=== PATIENT | male | born 1945 | race Caucasian/White ===

== ENCOUNTER 2017-02-11 14:30 | Outpatient (CLI) | payer OTHER ==
--- NOTE | 2017-02-11 15:45 | Ultrasound Report ---
AORTA SCREEN: 02/11/2017 CLINICAL INDICATION: Screening, smoking history. TECHNIQUE: Real-time scanning was performed with automotive sales representative static images obtained. FINDINGS: The proximal abdominal aorta is suboptimally visualized, due to bowel gas, but no aneurysm al dilatation is identified. The mid and distal portions are normal in caliber, measuring 1.4 and 1. 8 cm. The iliacs are normal in caliber. IMPRESSION: NO EVIDENCE OF ABDOMINAL AORTIC ANEURYSM. JOB #: [id number] EXT JOB #:[id number]
== END 2017-02-11 14:31 | disposition home or self-care (01) ==
LOC: DI 14:30
PROVIDERS: ATTEND Family Medicine
DX: Z13.6 Encounter for screening for cardiovascular disorders (principal)
CPT/HCPCS: 76706

== ENCOUNTER 2019-08-18 12:12 | Outpatient (CLI) | payer OTHER ==
[2019-08-18] MEDS ORDERED: IOVERSOL 320 100 ML VIAL IVP ONE ×2 (12:32→13:35)
[2019-08-18 12:44] LABS: ALBUMIN 4.2 g/dL (3.2-5.5); ALBUMIN/GLOBULIN RATIO 1.2 (1.0-2.2); CALCIUM 9.6 mg/dL (8.5-10.3); CREATININE 0.7 mg/dL (0.6-1.2); TOTAL PROTEIN 7.8 g/dL (6.7-8.2)
--- NOTE | 2019-08-18 13:55 | CT Report ---
Reason: CA OF THE TONGUE Procedure Date: 08/18/2019 Accession Number: [id number] / [id number] Procedure: CT - HEAD W CPT Code: Final Report FULL RESULT: EXAM: CT HEAD WITH CONTRAST EXAM DATE: 08/18/2019 01:24 PM. CLINICAL HISTORY: 74-year-old male. CA OF THE TONGUE. COMPARISON: NECK SOFT TISSUE W/ 08/18/2019 1:16 PM. TECHNIQUE: Multiaxial CT images were obtained from the foramen magnum to the vertex with intravenous contrast. Reformats: Sagittal and coronal. IV contrast: 80 mL Optiray 320. In accordance with CT protocol optimization, one or more of the following dose reduction techniques were utilized for this exam: automated exposure control, adjustment of mA and/or KV based on patient size, or use of iterative reconstructive technique. FINDINGS: Parenchyma: No intraparenchymal hemorrhage. No evidence of mass, midline shift, or CT findings of infarction. Zarate-white differentiation is distinct. No abnormal intracranial enhancement. Extraaxial Spaces: Normal for age. No subdural or epidural collections identified. Ventricles: Normal in size and position. Sinuses and Orbits: Imaged paranasal sinuses, orbits, and mastoids show no significant abnormality. Bones: No evidence of fracture or calvarial defect. Other: Atherosclerosis of the intracranial arteries. IMPRESSION: No abnormal intracranial enhancement to suggest evidence for intracranial metastatic disease. [facility]
--- NOTE | 2019-08-18 14:02 | CT Report ---
Reason: CA OF THE TONGUE Procedure Date: 08/18/2019 Accession Number: [id number] / [id number] Procedure: CT - SOFT TISSUE NECK W CPT Code: Final Report FULL RESULT: EXAM: CT SOFT TISSUE NECK WITH CONTRAST. EXAM DATE: 08/18/2019 01:24 PM. HISTORY: 74-year-old male. CA OF THE TONGUE. COMPARISONS: None. TECHNIQUE: Routine soft tissue neck CT protocol with contrast. Reconstructions: Coronal and sagittal. IV contrast: OPTIRAY 320. In accordance with CT protocol optimization, one or more of the following dose reduction techniques were utilized for this exam: automated exposure control, adjustment of mA and/or KV based on patient size, or use of iterative reconstructive technique. FINDINGS: Visualized Intracranial Contents: Unremarkable. Orbits: Status post bilateral lens replacement surgery. The visualized orbits are otherwise unremarkable. Sinuses: Visualized paranasal sinuses and mastoid air cells are clear. Oral cavity: There is an enhancing mass involving the right anterolateral thigh on and adjacent floor of mouth measuring approximately 23 x 13 x 25 mm (transverse by craniocaudal) (series 2 image 23, series 4 image 7), which is nonspecific but compatible with the suggested diagnosis of cancer of the tongue. Pharynx: Pharyngeal mucosa is unremarkable. The infratemporal fossa, parapharyngeal spaces, and retropharyngeal space are unremarkable. The base of the tongue is symmetric and unremarkable. The airway is patent. Larynx: Larynx and supraglottic airway are patent without mass lesion. Vocal cords are symmetric. The visualized trachea is unremarkable. Parotid and Submandibular Glands: Symmetric and unremarkable. Lymph Nodes: No enlarged lymph nodes are identified in the cervical, supraclavicular, and visualized superior mediastinal regions. Soft tissues: Soft tissues are unremarkable. No mass lesion or abnormal enhancement. Vascular Structures: Moderate atherosclerosis involving the aortic arch and carotid bifurcations bilaterally. Thyroid Gland: Normal. Lung: The visualized lung apices demonstrate mild centrilobular emphysema.. Bones: No evidence of acute fracture or malalignment. There are moderate multilevel degenerative changes. Other: None. IMPRESSION: 1. There is an enhancing mass involving the right anterolateral thigh on and adjacent floor of mouth measuring approximately 23 x 13 x 25 mm (transverse by craniocaudal) (series 2 image 23, series 4 image 7), which is nonspecific but compatible with the suggested diagnosis of cancer of the tongue. 2. No evidence of cervical adenopathy or enhancing mass lesions elsewhere. 3. Mild centrilobular emphysema. 4. Moderate atherosclerosis involving the aortic arch and carotid bifurcations bilaterally. RADIA
--- NOTE | 2019-08-18 15:58 | CT Report ---
Reason: CA OF THE TONGUE Procedure Date: 08/18/2019 Accession Number: [id number] / [id number] Procedure: CT - CHEST W CPT Code: Final Report FULL RESULT: EXAM: CT CHEST EXAM DATE: 08/18/2019 01:24 PM. CLINICAL HISTORY: CA OF THE TONGUE. COMPARISONS: None. TECHNIQUE: Routine helical CT imaging was performed through the chest. IV contrast: 80 mL Optiray 320. Reconstructions: Coronal and sagittal. In accordance with CT protocol optimization, one or more of the following dose reduction techniques were utilized for this exam: automated exposure control, adjustment of mA and/or KV based on patient size, or use of iterative reconstructive technique. FINDINGS: Lungs/Pleura: Bilateral lower lobe blebs. Mild to moderate centrilobular emphysema. There are several left lower lobe lung nodules on series 3. These include a 8 x 7 mm peripheral lateral left lower lobe nodule on image 66; a tiny 2 mm nodule in lateral left lower lobe on image 56; and 3 mm posterior subpleural nodule on image 65. 4 mm perifissural nodule along the minor fissure on series 11 image 88. Mediastinum: Moderate to extensive coronary arterial calcifications. No cardiomegaly or pericardial effusion. No bulky mediastinal adenopathy. Bones: Multiple old, healed right rib fractures. No acute fracture. Thoracolumbar scoliosis. Degenerative changes within the visualized spine. Visualized Abdomen: Atrophic pancreas with numerous scattered calcifications consistent with chronic calcific pancreatitis. Bilateral adrenal gland thickening compatible with hypertrophy. Fatty liver with diffuse decreased attenuation. Medial splenule. Other: None. IMPRESSION: 1. Emphysema. 2. Subcentimeter lung nodules and perifissural nodules. Consider 3-6 month follow-up chest CT. 3. Chronic calcific pancreatitis. Kiet Meredith et al. Guidelines for Management of Incidental Pulmonary Nodules Detected on CT Images: From the Fleischner Society 2017. Radiology (2017). RADIA
== END 2019-08-18 12:13 | disposition home or self-care (01) ==
LOC: LAB 12:12 → DI 12:13
PROVIDERS: ATTEND Family Medicine
DX: C01 Malignant neoplasm of base of tongue (principal); J43.2 Centrilobular emphysema; I70.0 Atherosclerosis of aorta; I65.23 Occlusion and stenosis of bilateral carotid arteries; R91.8 Other nonspecific abnormal finding of lung field; K86.1 Other chronic pancreatitis
CPT/HCPCS: 36415; 70460; 70491; 71260; 80053; Q9967

== ENCOUNTER 2019-10-14 12:47 | Outpatient (CLI) | payer MEDICARE ==
--- NOTE | 2019-10-14 18:15 | CONSULTATION NOTE ---
Palliative Care Consultation - Referral Referring Provider: Dr. Bear Galvan Time of Visit: [id number] [place] [facility] [place] Reason: Tongue CA/Anxiety/Pain of neoplastic origin - Information Sources Records reviewed: Previous records reviewed History/Review of Systems obtained from: Patient Exam limitations: No limitations - History of Present Illness Brief History of Present Illness: This is a 74-year-old gentleman who was found to have a right mass, and a routine dental visit. He has had all his teeth removed on his upper gums, for dentures though he does not wear these. He does have a increasing mass in the right base of his tongue, and neck imaging on 08/17 showed a 2 x 2.5 cm right tongue mass which showed extension into the the floor of the mouth. Patient has developed since then a 2 to 3 cm node just under the mandible or, firm but nontender. He is been having increasing dysphagia, though denies choking and increasing pain. He has lost over 15 pounds in the last several months. He has had a series of unfortunate events in trying to get to an oral surgeon, he finally has an appointment tomorrow. He did see otolaryngology with a telemedicine on 10/08. He does have a pending PET scan, as well as a CT scan. Patient is meeting with palliative care, he does present with poor social support, longstanding tobacco and alcohol abuse, worsening pain, and increasing anxiety over pending treatment plans. There has been a fairly extensive delay, and patient presents is quite frustrated. Medical/Surgical History - Past Medical History Cardiovascular: reports: Hypertension Respiratory: reports: COPD Neuro: reports: Peripheral neuropathy (right from neck injury; left from ankle injury) GI: reports: Chronic constipation Psych: reports: Anxiety MRSA Hx?: No - Past Surgical History General: reports: Other (hernia repair) HEENT: reports: Other (removal of upper teeth) - Substance History Use: Uses substance without health or social issues: Tobacco (1.5 packs a day; has tried to cut down to 1 pack daily), Alcohol (1-2 liters of wine a day) Social History - Living Situation Living arrangement: At home Living Situation: Alone Support System: Patient lives alone, [place] but his has health issues. He has his "routine" unfortunately this is been broken up with COVID-19, was going to the gym 4-5 times a week, has little social support, is . He is estranged from his 2 children, for 10 to 12 years. He does not believe they are aware of his current situation. He does see his brother is supportive, but given the likelihood of fairly aggressive treatment, will need to explore resources. Family History - Family History Family History: Mother: , CVA/TIA, Father: , Cancer (prostate cancer), Brother: Alive and Well (prostate cancer) Medications/Allergies - Medications Home Medications: Ambulatory Orders Medication Instructions Recorded Confirmed Acetaminophen 1,000 mg PO TID PRN 10/14/19 10/14/19 Ascorbic Acid [Vitamin C] 500 mg PO DAILY 10/14/19 10/14/19 Aspirin 81 mg PO DAILY 10/14/19 10/14/19 Cholecalciferol (Vitamin D3) 5,000 units PO DAILY 10/14/19 10/14/19 [Vitamin D3] Magic Mouthwash 5 - 10 ml PO Q4HR PRN 10/14/19 Multivit-Min/FA/Lycopen/Lutein 1 tab PO DAILY 10/14/19 10/14/19 [Centrum Silver Men Tablet] Vitamin B Complex/Folic Acid 1 tab PO DAILY 10/14/19 10/14/19 [Balance B-50 Tablet] atenoloL [Atenolol] 25 mg PO DAILY 10/14/19 10/14/19 - Allergies Allergies/Adverse Reactions: Allergies Allergy/AdvReac Type Severity Reaction Status Date / Time cefuroxime Allergy Rash Verified 10/14/19 18:15 Penicillins Allergy Unknown Verified 10/14/19 18:15 Review of Systems - Constitutional Constitutional: reports: Fatigue (wo), Weight loss (baseline weight 160; today weighs 143) - Eyes Eyes: reports: Vision loss - Ears, Nose & Throat Ears, Nose & Throat: reports: Ear pain (mild right ear; sharp shooting up from jaw; intermittent in nature), Dental decay (poor dentition with lower teeth. area swelling right base of mouth; no bleeding on exam), Other (palpable neck node). denies: Nosebleeds - Cardiovascular Cardiovascular: reports: Decr. exercise tolerance (very frustrated at decline; had been working out; not able to go to gym because of COVID19). denies: Chest pain - Respiratory Respiratory: reports: SOB with exertion. denies: Cough, Wheezing, SOB at rest - Gastrointestinal Gastrointestinal: reports: Constipation (new symptom for patient; hard stool has not been taking anything), Other (eats once a day; only using one ensure;) - Musculoskeletal Musculoskeletal: reports: Stiffness, Muscle weakness, Other (right neck pain/discomfort unclear if tumor or related to old injury "pinched nerve") - Integumentary Integumentary: reports: Dryness - Neurological Neurological: reports: General weakness, Slurred speech (mechanical having more difficulty talking) - Psychiatric Psychiatric: reports: Depression, Anxiety - All Other Systems All Other Systems: reports: Reviewed and negative Physical Exam - Vital Signs Temperature: 36.8 C Pulse Rate: 52 Respiratory Rate: 18 Blood Pressure: 130/81 - Physical Exam General Appearance: positive: Alert, Mild distress, Anxious Eyes Bilateral: positive: Normal inspection ENT: positive: No signs of dehydration, Other (poor dentition; black coating on tongue attributes to wine staining) Neck: positive: Trachea midline, Lymphadenopathy (R) Cardiovascular: positive: Regular rate & rhythm, Bradycardia Respiratory: positive: No respiratory distress, Diminished throughout. negative: Wheezes, Rales, Rhonchi Abdomen: positive: Non-tender, Soft Skin: positive: Pallor, Dryness Extremities: positive: No pedal edema Neurologic/Psychiatric: positive: Oriented x3, Mood/affect nml, Flat affect Palliative Care - POLST Patient has POLST: No Pain: Pain worsening, Location (right cervical area; right base of tongue; right neck radiating up into ear), Severity (2-9/10) Tiredness/Fatigue: None Drowsiness/Sedation: None Nausea: None Anorexia: None Dyspnea: None Depression: None Anxiety: Mild (1-3) Feelings of wellbeing/Perceived Quality of Life: Good, Acceptable Constipation: Yes, Intermittent constipation Performance Status: Patient is impacted by his neuropathy, needs a assisted cane for balance. He is able to manage his own ADLs and currently management of his IADLs. He does tire more easily with activity. - Palliative Care Discussion: Patient is just at the beginning of his cancer journey, trying to get to a place where he has decisions and options. He is still needs his staging information, he meets with the surgeon tomorrow at [facility]. We talked about his cancer he has usually takes or needs an aggressive approach, he will need some assistance after surgery or in support of treatment. We talked about cancer treatments, including surgery, chemotherapy, radiation, and immunotherapy in a broadened way. Patient does feel like most everybody talks over his head. So we are trying to break this down some. We did discuss in the context of a weighing decisions as far as quality of life versus quantity of life, what is curative in nature and what is palliative in nature as far as treatment options. He does have a treatable disease, and certainly the hope would be to extend both his quality and quantity of life but it may be a tough road up to this point in time. Patient with very little support other than his brother, he is going to need actually more likely physical support for meeting his care needs. He is already had weight loss, we did discuss the context of tube feedings as a supportive measure and not uncommon in his situation. He does present with some anxiety and fearfulness which would be appropriate. He wants to weigh his decisions in the context of how likely this would be of benefit at his age of 74, and if he were to return back to his previous level of functioning or be to be independent. Impression and Recommendations - Palliative Care Impression: This is a 74-year-old gentleman who is just starting his journey with his tongue cancer, plan in place for staging, and will be looking at treatment options. Palliative care to provide support and anticipatory guidance for pain and symptom management and coordination of care. Recommendations/Counseling Done: 1. Pain of neoplastic origin. Patient is complaining of increased pain persistent in his floor of his mouth, is somewhat adverse to medications. Recommended Magic mouthwash, this is not covered by insurance, I did speak with right aid, they can do a mix of 1:1 of lidocaine/maalox, Will not add Benadryl at this point in time given patient's risk for falls with neuropathy and high alcohol intake. Patient has been instructed to swish and spit, patient does not have any throat pain.Patient also identifies area in neck discomfort and pressure, patient has not used any medication. Recommended acetaminophen 1000 mg 3 times daily to start, I did offer hydrocodone 5 mg/acetaminophen 325 for breakthrough pain or severe pain, he will contact me if he changes his mind. 2. Neck pain. Patient attributes this to hold injury, though certainly could be referred pain from his tumor burden. Patient requesting recommendation for topical, would recommend Biofreeze, this was written down for him and instructed 2-3 times a day. 3. Weight loss. Patient with poor eating habits, eats only once a day, snacks and taking 1 Ensure a day instructed to increase nutritional supplements/shakes up to 3 times a day. Goal is for no further weight loss. At this point time he is not having choking, but is having difficulty with taste changes and physically getting adequate calories in. 4. Generalized weakness. This most likely is attributed weight loss, and also more sedentary lifestyle. Patient encouraged to continue to walk, and pace activities, he had been working out the gym previously recommended continue an ambulatory program. 5. Tobacco abuse. Patient had been smoking 1 and half packs, he has decreased to 1 pack daily. Patient does feel he could quit smoking, has in the past. Did send prescription for NicoDerm patches, though warned that this may not be covered by his insurance. 6. Alcohol abuse. Patient has fairly high retirement use of alcohol, drinking 1 to 2 L a day. When asked if he was able to get this up, he is not so sure that he would be able to. We did discuss in the context of pending possible surgery, would recommend at least temporarily cutting back, and to be honest and upfront with his providers given the risk of withdrawal syndrome. 7. Advanced care planning. Patient has very little social support, will involve medical palliative care social media marketing analyst, when plan in place. Will at least do an initial referral for introduction and resource management. Patient reports he does have D POA with his brother already completed, requested to have copy for records here at hospital. Will explore other advanced care planning documents Time Spent: 75 minutes with greater than 50% done with counseling, anticipatory guidance, review of cancer and cancer treatment staging, Looking at pain in symptom management, and coordination of care. Plan is to meet in 2 weeks after plan is in place.
== END 2019-10-14 12:48 | disposition home or self-care (01) ==
LOC: PC 12:47
PROVIDERS: ATTEND Nurse Practitioner Adult Health
DX: Z51.5 Encounter for palliative care (principal); G89.3 Neoplasm related pain (acute) (chronic); R13.10 Dysphagia, unspecified; R47.81 Slurred speech; R53.1 Weakness; R63.4 Abnormal weight loss; C02.9 Malignant neoplasm of tongue, unspecified; M54.2 Cervicalgia; K59.00 Constipation, unspecified; F17.210 Nicotine dependence, cigarettes, uncomplicated; F41.9 Anxiety disorder, unspecified; R06.02 Shortness of breath; K02.9 Dental caries, unspecified; Z79.899 Other long term (current) drug therapy; Z60.8 Other problems related to social environment; Z72.89 Other problems related to lifestyle
CPT/HCPCS: 99205

== ENCOUNTER 2019-10-27 14:32 | Outpatient (CLI) | payer MEDICARE ==
--- NOTE | 2019-10-27 17:04 | CONSULTATION NOTE ---
Palliative Care Follow Up - Referral Referring Provider: Dr. 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 He has not had his PET scan, for which she has canceled. He had met with Dr. Cavazos after his series of unfortunate events as far as delay, and it did look like he was moving forward with surgery. Per his note, they had reviewed the standard of care management of reconstruction with a microvascular free flap, including most likely needing to remove his teeth, follow-up with adjuvant radiation. He also talked about perioperative tracheostomy, as well as needed for nasogastric goal tube feeding/gastrostomy tube. His understanding was it would be a fairly long and involved process, it would be recovery of up to 6 months, and that it would impact his speaking point. In discussing what was the barriers for excepting, as he had ended up canceling both the surgery and the PET scan. He reports it had to do with the discussion regarding length of operation/prolonged recovery time to get to normal, the severity and aggressiveness of all the interventions, and also his concern regarding withdrawals. He reports he did not have enough time to taper down on his wine, and was told he would have seizures if he did not withdraw appropriately. Did revisit this, in the context of the choice of not making the choice to have treatment, he would be choosing for the tumor to continue to progress. This does mean that it has a chance of impacting swallowing, increasing pain, risk for bleeding, and adding to his demise. We did discuss in the context of not having staging, the prognosis and changes along with this would be less predictable, but most likely would have progressive disease including metastatic spread. His brother was present for the discussion, patient after much discussion, continues to feel this would not be congruent with his definition of quality of life. He would be willing however to talk to oncology to see if there was any other palliative treatment, that he might be willing to partake in for both quality and quantity of life. Counseling was provided if chooses no further treatment, would be appropriate for hospice care, with the goal to focus on comfort measures. Patient had multiple questions regarding end-of-life choices, including DWD, when he should transition to assisted or alternative living situation, what kind of rate of progression we would expect, as well as complications.Patient is willing to both did speak with oncology, as well as to have further testing if could be done locally. Patient's past medical history includes hypertension, COPD, peripheral neuropathy on the right from a neck injury, on the left from an ankle injury, chronic constipation, anxiety, and alcoholism. Social History - Living Situation Living arrangement: At home Living Situation: Alone Support System: Patient does live on his own, he does own his condo. He is wondering about repairing for end-of-life, including selling his condo and moving into assisted living. He has not explored this fully, is willing to speak with the palliative care social worker masters. His brother Dario who is his D POA, would like to be part of this conversation. Patient's brother Dario also has a history of prostate/bladder cancer, and wants to be supportive of patient. Though he himself appears quite frail and most likely not able to do any hands-on car egiving. He is estranged from his children at this time. Medications/Allergies - Medications Home Medications: Ambulatory Orders Medication Instructions Recorded Confirmed Acetaminophen 1,000 mg PO TID PRN 10/14/19 10/14/19 Ascorbic Acid [Vitamin C] 500 mg PO DAILY 10/14/19 10/14/19 Aspirin 81 mg PO DAILY 10/14/19 10/14/19 Cholecalciferol (Vitamin D3) 5,000 units PO DAILY 10/14/19 10/14/19 [Vitamin D3] Magic Mouthwash 5 - 10 ml PO Q4HR PRN 10/14/19 Multivit-Min/FA/Lycopen/Lutein 1 tab PO DAILY 10/14/19 10/14/19 [Centrum Silver Men Tablet] Vitamin B Complex/Folic Acid 1 tab PO DAILY 10/14/19 10/14/19 [Balance B-50 Tablet] atenoloL [Atenolol] 25 mg PO DAILY 10/14/19 10/14/19 - Allergies Allergies/Adverse Reactions: Allergies Allergy/AdvReac Type Severity Reaction Status Date / Time cefuroxime Allergy Rash Verified 10/14/19 18:15 Penicillins Allergy Unknown Verified 10/14/19 18:15 Review of Systems - Constitutional Constitutional: reports: Fatigue, Weight loss (144.7) - Ears, Nose & Throat Ears, Nose & Throat: reports: Hearing loss, Other (some bleeding at times; not persistent) - Cardiovascular Cardiovascular: reports: Decr. exercise tolerance. denies: Chest pain - Respiratory Respiratory: reports: SOB with exertion. denies: SOB at rest - Gastrointestinal Gastrointestinal: reports: Constipation (remains persistent; using miralax 1/2 capful every other day, did not titrate it up; on episode of severe constipation only last week), Early satiety, Other (more difficulty with textures/mouth pain). denies: Nausea - Genitourinary Genitourinary: reports: Frequency - Musculoskeletal Musculoskeletal: reports: Stiffness, Muscle weakness, Assistive devices (uses cane for balance issues) - Integumentary Integumentary: reports: Dryness - Neurological Neurological: reports: General weakness, Slurred speech (mechanical) - Psychiatric Psychiatric: reports: Depression, Anxiety. denies: Suicidal - Endocrine Endocrine: reports: Intolerance to cold (worsening;) - Hematologic/Lymphatic Hematologic/Lymphatic: denies: Recurrent infections - All Other Systems All Other Systems: reports: Reviewed and negative Physical Exam - Vital Signs Pulse Rate: 52 Respiratory Rate: 18 Blood Pressure: 135/73 - Physical Exam General Appearance: positive: No acute distress, Alert Eyes Bilateral: positive: Normal inspection ENT: positive: Other (no enlarged area at floor of mouth; poor dentition) Neck: positive: Other (nodule under right mandible enlarged compared to last exam; fixed and area of pain with palpation) Cardiovascular: positive: Bradycardia Respiratory: positive: No respiratory distress, Breath sounds nml, Diminished in bases Abdomen: positive: Non-tender, Soft Skin: positive: Pallor, Dryness Extremities: positive: No pedal edema Neurologic/Psychiatric: positive: Oriented x3, Mood/affect nml, Flat affect Palliative Care - POLST Patient has POLST: Yes Pain: Pain worsening, Location (Reports pain is mostly in howard area, radiating up into ear, reports some pain in his left ear as well. Has been using acetam inophen 1 time a day, needed it 3 times yesterday. He is using the Magic mouthwash at least daily, with some improvement in pain. Aggravating fluids is the wine, more textured foods.) Tiredness/Fatigue: Moderate (4-6) Drowsiness/Sedation: None Nausea: None Anorexia: Moderate (4-6), Weight loss (steady from last visit; 15 pounds overall with dx) Dyspnea: Mild (1-3) Depression: Mild (1-3) Anxiety: Mild (1-3) Feelings of wellbeing/Perceived Quality of Life: Fair, Acceptable, Worsening Sleep: Sleeps well Constipation: Yes, Unmanaged, Intermittent constipation Performance Status: Patient used to have a routine, that he like to do for working out. Asking if he can do some easygoing exercises, as gym is not open. Asked him to just pay attention, and pace self, recommended progressive ambulation, but some strength building is fine. Patient is still able to manage his ADLs, is asking appropriate questions about the future. - Palliative Care Discussion: Patient does understand the seriousness of his illness, in the context of decision making, he had many barriers to treatment for curative intent. He is willing though to explore other options, including immunotherapy if candidate through oncology. He very much wants to keep his care localized, this includes a lot of resistance to consideration of radiation as part of the picture as well. We did discuss they would need to complete staging, he would like to speak with the oncologist first before he moves forward with a PET scan. He would be willing to do other scans or testing here at the [facility] facility. Patient is thinking about the future, he does have his D POA, it is his brother Horacio [phone]. He does have application in for the wheeled body program from the [facility], and does understand he needs a "Plan B". Did give him the information for [facility]. Counseling provided regarding the continuum of care including palliative treatment, hospice care, as well as end-of-life choices. Patient reports he has a POLST, filled out with Dr. Galvan, does not have a copy of this. He is to bring this in next visit, to make sure it is reflective of his current goals. I did get the D POA and the directives for medical records. Impression and Recommendations - Palliative Care Impression: This is a 74-year-old gentleman who has a diagnosis of squamous cell carcinoma of the right floor of the mouth, known T3, N1, M0. Original plan for him to move forward with surgery, though he is now canceled both surgery and PET scan. Patient is willing to speak with oncology, about palliative treatments if options to extend both quality and quantity of life. Patient has complex social situation, as well as longstanding tobacco and alcohol abuse. Palliative care to continue provide support for symptom management and anticipatory guidance. Recommendations/Counseling Done: 1. Pain of neoplastic origin. Patient has gotten relief with Magic mouthwash, it is a mix of one-to-one lidocaine/Maalox, as does not need the Benadryl at this point in time. He is using it prior to eating, did encourage and use it more frequently to improve his intake. Patient has increased his acetaminophen intake, reports he is taking it 1-3 times daily, I did offer him stronger pain medication, he is declined at this point in time. 2. Weight loss. Patient continues with poor eating habits, eats only once a day, takes a nutritional shake about once daily. He has not had any further weight loss, is having more trouble with his tongue pain and swallowing, recommended to get a "bullet" to be able to pure and grind food. We will have him see dietitian in addition to oncology when referral completed. Encouraged to do more small frequent feedings, as well as increased fluid intake. Patient is still able to do his own meal prep, will continue to monitor. 3. Squamous cell cancer of the floor of the right mouth. Patient at this point in time has declined surgical intervention, counseling provided regarding curative intent versus palliative intent. Reviewed if choosing no treatment, expected worsening and sequela of untreated tumor particularly in mouth. Patient is willing to speak with oncology, to see if there are any palliative treatments that might improve his quality and quantity of life, he was interested in immunotherapy if option and worried about continuing to be independent and with min. impact of QOL. I did have surgeons note, was able to review again the information shared, patient did appear to hear appropriately along with possible complications. Patient at this point does not want surgery. 4. Alcohol abuse. Patient is trying to decrease his drinking, and also as to his discomfort in his mouth. He reports he is down to less than 1 L a day, but continues to drink. This is been long-term for him. At this point he does not see any benefit to cutting back or quitting, I did encourage him to continue with his taper as much as he could. 5. Tobacco abuse. Patient continues to smoke, at this point in time has not pursued any tobacco products i.e. NicoDerm. 6. Advanced care planning. Patient has made some end-of-life plans, does have his body donation set up, given [facility] Plan B, and cremation. He is actively thinking about transitioning his care setting, will have Yessica the social worker masters follow-up at this point now that we know the plan. Reached out to both PCP for referral through [place] and patient navigator, they do have an appointment on 11/10 they are hopefully holding for him. We will follow-up on POLST with next visit, and continue provide ongoing support every two weeks. Time Spent: 60 minutes with greater than 50% of this done in counseling regarding goals of care, anticipatory guidance particularly in the context of making sure he understands treatment versus supportive care and sequela of nontreated tumor, will follow up on oncology referral and update to PCP
== END 2019-10-27 14:33 | disposition home or self-care (01) ==
LOC: PC 14:32
PROVIDERS: ATTEND Nurse Practitioner Adult Health
DX: Z51.5 Encounter for palliative care (principal); G89.3 Neoplasm related pain (acute) (chronic); R63.4 Abnormal weight loss; K59.00 Constipation, unspecified; R13.10 Dysphagia, unspecified; F10.10 Alcohol abuse, uncomplicated; F17.210 Nicotine dependence, cigarettes, uncomplicated; J44.9 Chronic obstructive pulmonary disease, unspecified; I10 Essential (primary) hypertension; C04.9 Malignant neoplasm of floor of mouth, unspecified; C01 Malignant neoplasm of base of tongue; Z79.899 Other long term (current) drug therapy
CPT/HCPCS: 99215

== ENCOUNTER 2019-11-16 14:25 | Outpatient (CLI) | payer MEDICARE ==
--- NOTE | 2019-11-16 17:56 | CONSULTATION NOTE ---
Palliative Care Follow Up - Referral Referring Provider: Dr. 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 He had met with Dr. Richards, head and neck surgeon, and at this point in time has decided does not want to pursue surgery. There were many barriers that led up to this. Patient though was willing to meet with Dr. Herrera, oncology to see his options. He did have a consult on 11/11/2019. Patient remains overwhelmed in the context of making a decision, and we reviewed the recommendations and conversation that was documented between him and the oncologist. We did discuss if he were still a surgical care candidate, that would be curative treatment, radiation may have something to offer but he is not keen on this either. So did focus on chemotherapy for management of acute and upfront disease, as well as immun otherapy for palliation. Patient does get overwhelmed with all the symptoms regarding treatments, but we did review in the context of this all the symptoms of progressive disease. Patient is having increased trouble with swallowing, increased pain and discomfort, intermittent small amounts of bleeding, and would be expected to progress in the context of tumor growth as well. Patient has met with palliative care home health care social worker, he is planning for the future. He is selling his condo, and has explored assisted living, at this point in time he is leaning toward [facility]. Palliative care meeting with patient today, to further explain and provide anticipatory guidance, as well as further explanation regarding options provided. Social History - Living Situation Living arrangement: At home Living Situation: Alone Support System: Patient has been a long-term drinker, is able to function, and does not perceive it is problematic. Though he does admit to having decreased to less than half a liter a day. He continues to smoke. He will need to find a setting for which he can transition to. He is estranged from his children, his brother has health issues as well as brother's . He was unable to come to the appointment today. Patient has been retired for long period of time, is still managing all his own affairs. Medications/Allergies - Medications Home Medications: Ambulatory Orders Medication Instructions Recorded Confirmed Acetaminophen 1,000 mg PO TID PRN 10/14/19 11/12/19 Ascorbic Acid [Vitamin C] 500 mg PO DAILY 10/14/19 11/12/19 Aspirin 81 mg PO DAILY 10/14/19 11/12/19 Cholecalciferol (Vitamin D3) 5,000 units PO DAILY 10/14/19 11/12/19 [Vitamin D3] Magic Mouthwash 5 - 10 ml PO Q4HR PRN 10/14/19 11/12/19 Multivit-Min/FA/Lycopen/Lutein 1 tab PO DAILY 10/14/19 11/12/19 [Centrum Silver Men Tablet] Vitamin B Complex/Folic Acid 1 tab PO DAILY 10/14/19 11/12/19 [Balance B-50 Tablet] atenoloL [Atenolol] 25 mg PO DAILY 10/14/19 11/12/19 - Allergies Allergies/Adverse Reactions: Allergies Allergy/AdvReac Type Severity Reaction Status Date / Time cefuroxime Allergy Rash Verified 11/12/19 10:11 Penicillins Allergy Unknown Verified 11/12/19 10:11 Sulfa (Sulfonamide Allergy Unknown Verified 11/12/19 10:17 Antibiotics) Review of Systems - Constitutional Constitutional: reports: Fatigue, Weight stable (stable from last visit;). denies: Fever, Chills - Ears, Nose & Throat Ears, Nose & Throat: reports: Hearing loss, Dental decay, Other (noticing some bleeding and increased pain) - Cardiovascular Cardiovascular: reports: Decr. exercise tolerance - Respiratory Respiratory: denies: SOB at rest - Gastrointestinal Gastrointestinal: reports: Constipation (continues to struggle), Early satiety. denies: Nausea - Musculoskeletal Musculoskeletal: reports: Muscle weakness, Assistive devices (walking stick) - Integumentary Integumentary: reports: Dryness, Other (Patient reports a case of shingles on his buttocks, has had intermittently over time, he had gotten better as he had gotten shingles vaccine, along with the booster. He was surprised he still had outbreak. Patient may need prophalaxis if goes on treatment) - Neurological Neurological: reports: Slurred speech (mechanical) - Psychiatric Psychiatric: reports: Depression (tearful through visit today) - Hematologic/Lymphatic Hematologic/Lymphatic: denies: Recurrent infections - All Other Systems All Other Systems: reports: Reviewed and negative Physical Exam - Vital Signs Temperature: 36.8 C Pulse Rate: 47 Respiratory Rate: 18 Blood Pressure: 152/72 - Physical Exam General Appearance: positive: Alert, Anxious Eyes Bilateral: positive: Normal inspection ENT: positive: Other (poor dentition with missing teeth bottom; edentulous top; unable to move tongue back in mouth related to pain/swelling;) Neck: positive: Trachea midline, Lymphadenopathy (R), Lymphadenopathy (L) Cardiovascular: positive: Bradycardia Respiratory: positive: Diminished throughout. negative: Wheezes Abdomen: positive: Non-tender, Soft Skin: positive: Pallor, Dryness Extremities: positive: No pedal edema Neurologic/Psychiatric: positive: Oriented x3, Weakness, Depressed mood/affect Palliative Care - POLST Patient has POLST: Yes POLST Status: DNR, Selective Treatment (completed at visit) Pain: Pain worsening, Location (floor of mouth; using still only acetaminophen 1 tab BID;) Tiredness/Fatigue: Mild (1-3) Drowsiness/Sedation: None Nausea: None Anorexia: Mild (1-3) Dyspnea: None Depression: None Anxiety: None (though said he was very anxious about this visit) Feelings of wellbeing/Perceived Quality of Life: Good, Acceptable Sleep: Sleeps poorly Constipation: Yes, Unmanaged Performance Status: Patient does feel like he has lost muscle mass, and is much weaker. He is to exercise all the time. He does have less endurance. He has still been able to manage all his ADLs and still drives. - Palliative Care Discussion: Patient continues to have questions and feeling somewhat overwhelmed, is trying to weigh quality of life with quantity of life. I am trying to get a sense if he understands the downside of not pursuing any kind of treatment, with progressive tumor growth. He does report surgery is off the table, but was willing after we had several discussions to consider moving forward with some kind of treatment. I had reached out to Dr. Herrera, That if he is not can pursue curative treatment, most effective at this point would be due chemo and immunotherapy combined to get his tumor burden down. I also shared with him he could try one treatment, and if he did not like it he could always either continue with just immunoth erapy or choose to focus on comfort only. He also discussed about scanning, Dr. Herrera would like a PET scan to complete staging, but also even if he could not consider follow through on this, CT scan would be helpful as well. He did share he has acronym FUD, fear uncertainly and doubt, at this point in time he does not feel it is fear or cowardice, but more about doubt if this is the right thing to do in prolonging his life/suffering. He feels if we could tell him he be just the same why he is right now even for 18 months he would be good, he feels like he is in a good space and this is his happy place, I did tell him though untreated cancer most often we say 6 months or less. He reports he does to spend time when these decisions come up weighing and wrestling with it, I know he has a follow-up with oncology, but felt like he would make a decision prior to this. We did discuss in the context that this would be helpful to know to start getting appointments lined up particularly chemo teaching and preapproval for treatments. We did proceed and follow through on completing a new POLST. His old one had him a full code, this is definitely not congruent with his wishes. He wants to be a DNA R, and selective treatments, he would at this point in time except hospitalization or treatment for reversible conditions. 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 Patient is struggling with whether to pursue any kind of intervention, has met with oncology, is continue to weigh benefits and burdens of moving forward. Patient has complex social situation, as well as longstanding tobacco and alcohol abuse. Palliative care to continue provide support for symptom management and anticipatory guidance. Recommendations/Counseling Done: 1.Pain of neoplastic origin. Patient has only trialed the Magic wild wash once, again was encouraged to use it prior to eating. He is having more difficulty swallowing, and is feeling somewhat fearful about this. Denies any choking. He is able to manage his pain currently with Tylenol just 1 tab twice a day, we discussed most likely would be more comfortable if he scheduled 2 tabs 3 times a day, he will give it a trial. 2. Weight loss. Patient is trying to add calories with drinks, more painful to eat. Trying to follow a more soft diet. Patient would most likely benefit from a visit with a dietitian, will wait until he has made his decision regarding treatment to facilitate. 3. Squamous cell carcinoma floor of the right mouth. Patient is quite adamant at this point in time we will not pursue surgery, is weighing benefits and burdens of chemotherapy/immunotherapy. He does have a follow-up with Dr. Herrera in 2 weeks. Did discuss in the context if he were going to pursue treatment, it would be good given the progression of his pain and tumor to do it sooner than later. He will let me know to help facilitate. 4. Insomnia. Patient is having more trouble with sleep at night, attributed to the pain. Did offer trazodone, he dislikes pills, he will let me know if he wants me to order it for him. 5. Constipation. Patient still struggling with constipation, his mouth is quite sore and does not tolerate the MiraLAX very well. He has used the senna, instructed to take 3 tabs daily. 6. Poor dentition. Patient does have some understanding would most likely have to have his teeth removed. We did discuss in the context of this to follow-up with the dentist. He is unable this time to brush his teeth secondary to pain on the floor his mouth, instructed to get a forehead wash. And seen the dentist can most likely give him something more effective. 7. Immunosuppression. Patient has had some intermittent episodes with shingles on his buttocks. To go on some prophylactic antiviral, he is to call if it reoccurs. 8. Advanced care planning. Patient has met with medical palliative care home health care social worker, his plan is to relocate to a place he can transition to hospice and eventually. He does recognize he is going to need more support. We also completed a new POLST, and review of his goals. We will continue to provide anticipatory guidance. Time Spent: 60 minutes with greater than 50% of this done in counseling regarding goals of care, finishing POLST, anticipatory guidance and education regarding disease and treatments. Patient to reach out when has made decision, otherwise is rescheduled after oncology appointment.
== END 2019-11-16 14:26 | disposition home or self-care (01) ==
LOC: PC 14:25
PROVIDERS: ATTEND Nurse Practitioner Adult Health
DX: Z51.5 Encounter for palliative care (principal); G89.3 Neoplasm related pain (acute) (chronic); R63.4 Abnormal weight loss; C04.9 Malignant neoplasm of floor of mouth, unspecified; G47.00 Insomnia, unspecified; R13.10 Dysphagia, unspecified; R53.1 Weakness; B02.9 Zoster without complications; K08.9 Disorder of teeth and supporting structures, unspecified; F10.10 Alcohol abuse, uncomplicated; Z72.0 Tobacco use; Z79.899 Other long term (current) drug therapy; Z79.82 Long term (current) use of aspirin; Z63.79 Other stressful life events affecting family and household; Z66 Do not resuscitate
CPT/HCPCS: 99215

== ENCOUNTER 2019-11-30 14:23 | Outpatient (CLI) | payer MEDICARE ==
--- NOTE | 2019-11-30 17:42 | CONSULTATION NOTE ---
Palliative Care Follow Up - Referral Referring Provider: Dr. Bear Galvan Time of Visit: [id number] Referral setting: [facility] [place] Referral Reason: Squamous Cell of CA of Right Floor of Mouth/Pain/Goals of Care - Information Sources Records reviewed: Previous records reviewed History/Review of Systems obtained from: Patient Exam limitations: No limitations - History of Present Illness Update Brief HPI Update: This is a 74-year-old gentleman who was found to have a right mass in the floor of his mouth on a routine dental visit. He had his original CT scan on 08/08/2019, that did show a mass at the base of his right tongue 2 x 2.5 cm with extension to the floor of the mouth. He has had a biopsy that showed squamous cell carcinoma of the mouth. This was done on 07/13/2019. Patient unfortunately had a series of events as far as getting to a consult, he had finally met with Dr. Cavazos the head and neck surgeon, this was done in october, they had reviewed the standard of care management of reconstruction with a microvascular free flap, and would have been potentially curative for T3N1/M0 disease. Patient did not feel given his age, current quality of life, and the extensive recovery time it was going to add significantly to his quality of life. There were many barriers the gotten away, and he chose not to have treatment. In the context of this he was willing though to explore further with oncology, he did meet with Dr. Laura MCCORMACK, and was laid out several options regarding chemotherapy and immunotherapy, as well as revisited radiation. We had met again about this, patient though has in the meantime decided to transition to just comfort measures, no treatment, and wanting to live the rest of his life recognizing it will be significantly shortened, with a focus on comfort and quality. In the meantime the tumor is continued to enlarge, both in his mouth and right neck area, he has having some intermittent bleeding, it is having increased pain both in his mouth and radiating up into his ear area, he is having less ability to eat and drink. He has had another 4 pound weight loss since her last visit 10/27/2019. He is wrapping up his affairs, selling his condo, and moving into [employer]. He is still ambulatory, able to maintain his hydration, does present with some functional decline in activity intolerance, but is still able to drive. Today's visit is focused on symptom management, and introduction to transitioning to hospice. Social History - Living Situation Living arrangement: At home Living Situation: Alone Support System: Patient lives in a condo, he is getting ready to list this, has been packing up taking care of his belongings. He is planning to transition to [employer], at this point this is dependent on selling his condo, but if needed assistance or help would move sooner. He does have a brother, who is his D POA, but brother's has significant health problems, and they though are available, are not available for caregiving. Medications/Allergies - Medications Home Medications: Ambulatory Orders Medication Instructions Recorded Confirmed Acetaminophen 1,000 mg PO BID 10/14/19 12/01/19 Aspirin 81 mg PO DAILY 10/14/19 12/01/19 Cholecalciferol (Vitamin D3) 5,000 units PO DAILY 10/14/19 12/01/19 [Vitamin D3] atenoloL [Atenolol] 25 mg PO DAILY 10/14/19 12/01/19 Senna [Senokot] 2 tab PO TID 12/01/19 12/01/19 polyethylene glycoL 3350 [Miralax] 17 mg PO DAILY 12/01/19 12/01/19 traZODone [Desyrel] 50 - 100 mg PO QPM 12/01/19 12/01/19 - Allergies Allergies/Adverse Reactions: Allergies Allergy/AdvReac Type Severity Reaction Status Date / Time cefuroxime Allergy Rash Verified 11/12/19 10:11 Penicillins Allergy Unknown Verified 11/12/19 10:11 Sulfa (Sulfonamide Allergy Unknown Verified 11/12/19 10:17 Antibiotics) Review of Systems - Constitutional Constitutional: reports: Fatigue, Weakness, Weight loss (138.4) - Ears, Nose & Throat Ears, Nose & Throat: reports: Ear pain, Nasal congestion, Dental decay - Cardiovascular Cardiovascular: reports: Decr. exercise tolerance. denies: Chest pain - Respiratory Respiratory: denies: Cough, SOB at rest - Gastrointestinal Gastrointestinal: reports: Constipation (hard stools every other day; unable to take Miralax as "stung"), Poor appetite, Early satiety, Other (taste changes) - Musculoskeletal Musculoskeletal: reports: Stiffness, Muscle weakness, Assistive devices (uses c ane) - Integumentary Integumentary: reports: Dryness - Neurological Neurological: reports: General weakness, Numbness, Memory problems (peripheral neuropathy), Abnormal gait - Hematologic/Lymphatic Hematologic/Lymphatic: denies: Recurrent infections - All Other Systems All Other Systems: reports: Reviewed and negative Physical Exam - Vital Signs Temperature: 97.6 C Pulse Rate: 52 Respiratory Rate: 18 Blood Pressure: 149/65 - Physical Exam General Appearance: positive: No acute distress, Alert Eyes Bilateral: positive: Normal inspection ENT: positive: Ear pain (right ear; mild redness no bleeding noted; had reported 2 episodes noted), Postnasal drainage, Dental decay (lower teeth), Other (increasing lesion noted at base with friable tissue) Neck: positive: Trachea midline, Lymphadenopathy (R) (enlarged; tender on palpation) Cardiovascular: positive: Regular rate & rhythm Respiratory: positive: No respiratory distress, Breath sounds nml Abdomen: positive: Soft, Other (flattented; sternum prominent with weight loss; concerned it was "sticking out") Skin: positive: Pallor, Dryness Extremities: positive: No pedal edema Neurologic/Psychiatric: positive: Oriented x3, Weakness, Flat affect Palliative Care - POLST Patient has POLST: Yes POLST Status: DNR, Selective Treatment Pain: Pain worsening, Location (base of tongue; using APAP at bedtime only; discontinued magic mouthwash as it "stung"; reports pain mostly with eating only; more difficulty with pills) Tiredness/Fatigue: None Drowsiness/Sedation: None Nausea: None Anorexia: Mild (1-3) Dyspnea: None Depression: None Anxiety: None Feelings of wellbeing/Perceived Quality of Life: Good, Acceptable, No change Sleep: Sleep improved (sleeping longer with trazadone), Variable sleep pattern Constipation: Yes, Intermittent constipation Performance Status: Patient is still able to manage ADLs, is still driving. He has been quite fatigued as he has been packing up and getting his condo ready to sell. Needing more frequent rest periods, have noted little bit slower in ambulation today, more difficulty getting from sitting to standing, somewhat more shaky. - Palliative Care Discussion: In reviewing patient's goals, patient has decided no chemo or immunotherapy as well. He is weighed this in the context of longevity versus quality of life, though he does recognize things are changing fairly quickly. He does not want to prolong his suffering, and does not feel in the long-term extended survival is worth it. He is at peace with his decision, does believe his brother supports him. He is making active plans to transition to [facility]. We discussed since patient's goals were no hospitalization, focus on comfort, and no interventions he would be appropriate for transition to hospice. Patient does not perceive himself is imminently transitioning, we discussed that it would be of benefit to have hospice available for symptom management, supported [facility], and to plan for his ongoing decline. Patient is getting ready to list his condo on Saturday, we discussed waiting the timing of this, agreed to follow-up next week. Impression and Recommendations - Palliative Care Impression: This is a 74-year-old gentleman who has a known diagnosis of squamous cell carcinoma of the floor of his right mouth, which is continue to progress with increased tumor growth, and worsening right neck lymphadenopathy. Patient is decided at this point in time to decline any treatment, and would be appropriate for transition to hospice. Patient has complex social situation as well as longstanding tobacco and alcohol abuse. Palliative care to continue provide support for symptom management and anticipatory guidance with goal to transition to hospice in the next 2 weeks. Recommendations/Counseling Done: 1. Pain of neoplastic origin. Patient has trialed the Magic mouthwash, has found it irritating to his area of tumor. He does get some relief from acetaminophen, recommended scheduling the acetaminophen 2 tabs a.m. and 2 tabs at dinnertime. He has so far declined any opioids, but did agree to trazodone to help with sleep. 2. Insomnia. Patient is having more trouble with sleep, was attributed to pain, has gotten some relief with the trazodone. He is currently taking 50 mg, encouraged good increase that to 100 mg for both comfort and sleep. 3. Weight loss. Patient is trying to add calories, now has lost his taste and this makes it even more difficult. Feeling more anorexic, is only able to get down about 1-1/2 Ensure, encouraged to try and add calories and minimize weight loss though this is going to be difficult given his current situation. 4. Squamous cell carcinoma floor of the right mouth. Patient did peer financial counselor his appointment with , has decided no treatment. Patient given the progression of his disease, and expected decline, along with his goals would be appropriate for transition to hospice. We will plan to facilitate when patient moved and/or accepting. 5. Constipation. Patient continues to struggle with constipation, did not like the MiraLAX as it "stung". He is having more trouble with pills, difficulty swallowing senna. Patient was instructed to crush med, and it also comes in a liquid form. Instructed to increase his senna to 2 tabs 3 times daily, we also discussed adding back in the MiraLAX and mixing it in his shake. He is having hard stool, and would benefit. 6. Advanced care planning. Patient has met with medical palliative care manager social media, will have her follow-up if there is anything else to help facilitate in the transition to hospice. Patient has expressed interest in DWD, but this may be complicated given his increasing trouble with swallowing. Patient is made arrangements to donate his body, he will make that information available to hospice on admit. Counseling provided regarding the continuum of care and hospice benefit and hospice team. Time Spent: 45 minutes with greater than 50% of this done in counseling regarding goals of care, pain and symptom management, anticipatory guidance, and coordination of c are with hospice team.
== END 2019-11-30 14:24 | disposition home or self-care (01) ==
LOC: PC 14:23
PROVIDERS: ATTEND Nurse Practitioner Adult Health
DX: Z51.5 Encounter for palliative care (principal); G89.3 Neoplasm related pain (acute) (chronic); R53.1 Weakness; R53.83 Other fatigue; R63.4 Abnormal weight loss; K59.00 Constipation, unspecified; G47.00 Insomnia, unspecified; R59.0 Localized enlarged lymph nodes; C04.9 Malignant neoplasm of floor of mouth, unspecified; F17.200 Nicotine dependence, unspecified, uncomplicated; Z79.899 Other long term (current) drug therapy; Z72.89 Other problems related to lifestyle; Z63.8 Other specified problems related to primary support group; Z66 Do not resuscitate
CPT/HCPCS: 99215